=== PATIENT | male | born 1980 | race Caucasian/White ===

== ENCOUNTER 2016-11-02 13:23 | Emergency (ER) | payer SELFPAY ==
--- NOTE | 2016-11-02 14:38 | ED ---
Upper Extremity Pain - HPI Summary HPI Summary: 36M presents with left thumb laceration today from knife. He is right handed. He does not know when his last tetanus was. He has full ROM of his thumb. - History of Current Complaint Chief Complaint: EDLacSutureRecheck Stated Complaint: LT HAND-THUMB LAC Time Seen by Provider: 11/02/16 13:38 - Allergies/Home Medications Allergies/Adverse Reactions: Allergies Allergy/AdvReac Type Severity Reaction Status Date / Time No Known Allergies Allergy Verified 05/08/14 09:57 PMH/Surg Hx/FS Hx/Imm Hx Endocrine/Hematology History: Denies: Hx Anticoagulant Therapy EENT History: Denies: Hx Hearing Problem - Immunization History Date of Tetanus Vaccine: unknown Infectious Disease History: No Infectious Disease History: Denies: Traveled Outside the [place] in Last 30 Days - Family History Known Family History: Positive: Hypertension - Social History Alcohol Use: Rare Substance Use Type: Reports: Marijuana Substance Use Comment - Amount & Last Used: multiple times daily Smoking Status (MU): Heavy Every Day Tobacco Smoker Review of Systems Negative: Fever Negative: Chest Pain Negative: Shortness Of Breath Positive: Other - laceration of left thumb All Other Systems Reviewed And Are Negative: Yes Physical Exam Triage Information Reviewed: Yes Vital Signs On Initial Exam: Initial Vitals Temp Pulse Resp BP Pulse Ox 97.6 F 94 20 143/80 99 11/02/16 13:28 11/02/16 13:28 11/02/16 13:28 11/02/16 13:28 11/02/16 13:28 Vital Signs Reviewed: Yes Appearance: Positive: Well-Appearing Skin: Positive: Warm, Dry, Other - 2cm superficial laceration of left thumb Head/Face: Positive: Normal Head/Face Inspection Eyes: Positive: Normal, Conjunctiva Clear Musculoskeletal: Positive: Strength/ROM Intact - of left thumb, Other - good pulses, capillary refill <2secs Procedures - Laceration/Wound Repair 1 Location: Other - left thumb Description: Linear Length, Depth and Shape: 2cm superficial Irrigated w/ Saline (ccs): 50 Closure: Skin Adhesive, SteriStrips Diagnostics - Vital Signs Vital Signs Temp Pulse Resp BP Pulse Ox 11/02/16 14:01 97.6 F 94 20 143/80 99 11/02/16 13:28 97.6 F 94 20 143/80 99 - Laboratory Lab Statement: Any lab studies that have been ordered have been reviewed, and results considered in the medical decision making process. Course/Dx - Course Course Of Treatment: 36M presents with left thumb laceration. 2cm superficial laceration to left thumb has full ROM discussed sutures vs glue and due to being superficial will just glue. clean area and placed in premade finger splint on area after placing glue on laceration with steri strips. patient refused tetanus. patient understands and agrees with plan - Diagnoses Differential Diagnosis/HQI/PQRI: Positive: Laceration, Other - abrasion, avulsion Provider Diagnoses: Laceration of left thumb Discharge - Discharge Plan Condition: Good Disposition: HOME Patient Education Materials: Skin Adhesive Care (ED) Referrals: Non Staff,Doctor [Primary Care Provider] - Additional Instructions: Place ice on area Take Tylenol or ibuprofen for pain as needed every 6 hours Glue will fall off on own Avoid scrubbing area Keep splint on area for 5 days Return to ED if develop any signs of infection or any new or worsening symptoms
[2016-11-02 14:45] VITALS: BP 136/77
== END 2016-11-02 14:44 | disposition home or self-care (01) ==
LOC: ED 13:23
DX: S61.012A Laceration without foreign body of left thumb without damage to nail, initial encounter (principal); W26.0XXA Contact with knife, initial encounter; Y93.9 Activity, unspecified; Y92.9 Unspecified place or not applicable
CPT/HCPCS: 12001; 99282